=== PATIENT | male | born 2000 | race Caucasian/White ===

== ENCOUNTER 2021-02-01 09:41 | Emergency (ER) | payer BC, SELFPAY ==
--- NOTE | ~2021-02-01 | XR_ITS ---
EXAMINATION: XR elbow LT min 3V EXAM DATE: 02/01/2021 14:18 INDICATION: Left elbow laceration, pain. TECHNIQUE: Left elbow frontal, lateral with flexion, and oblique projections obtained and reviewed. There is no prior study for comparison. FINDINGS: Left elbow anterior humeral line intact. There are no acute fractures or dislocations ellie ntified. There is no subcutaneous gas. Laceration identified over the olecranon process. There are no radiopaque foreign bodies. IMPRESSION: No acute osseous findings. Laceration. Reviewed, dictated and finalized at location A. [facility]
[2021-02-01 10:23] VITALS: BP 147/67; PULSE 70; RESP 16; TEMP 36.2; O2SAT 100
[2021-02-01 13:08] VITALS: BP 134/73; PULSE 68; RESP 12; O2SAT 100
--- NOTE | 2021-02-01 14:39 | ED.GENADULT ---
HPI - General Adult General Chief complaint: Wound/Laceration Stated complaint: Laceration L elbow Time Seen by Provider: 02/01/21 13:27 Source: patient Mode of arrival: ambulatory Limitations: no limitations History of Present Illness HPI narrative: Patient is a 20-year-old male with chief complaint of laceration to the left elbow that he sustained while playing hockey and hitting the elbow on the ice. Patient reports he has full range of motion to the elbow but there is some tenderness and a little swelling. Patient reports that he is up-to-date on tetanus. Patient denies any other injuries or concerns. Related Data Allergies Allergy/AdvReac Type Severity Reaction Status Date / Time No Known Allergies Allergy Verified 02/01/21 15:27 Review of Systems Review of Systems: CONSTITUTIONAL: Denies fever, chills, or sweats. EYES: Denies visual changes, redness, or discharge. ENT: Denies rhinorrhea, congestion, sore throat, or otalgia. CARDIOVASCULAR: Denies chest pain, palpitations, or edema. RESPIRATORY: Denies cough or dyspnea. GASTROINTESTINAL: Denies abdominal pain, nausea, vomiting, or diarrhea. GENITOURINARY: Denies dysuria or hematuria. SKIN: Reports laceration denies rash or itching. MUSCULOSKELETAL: Denies back pain, joint pain, or myalgia. NEUROLOGIC: Denies headache, numbness, dizziness, or weakness. PSYCHIATRIC: Denies anxiety or depression. Exam Narrative: GENERAL: Well-appearing, well-nourished, and in no acute distress. HEAD: Normocephalic, atraumatic. EYES: PERRLA and EOMI. CHEST: Clear to auscultation. No respiratory distress. No wheezes rales or rhonchi HEART: Regular rate and rhythm. No murmur heard. Normal peripheral pulses. EXTREMITIES: Normal range of motion. No edema. SKIN: 2.5 cm laceration to left elbow with some gaping. Appears to have some avulsed tissue to center. Warm, dry, no rash. NEURO: No focal deficits. Alert and oriented x3. PSYCH: Normal mood and affect. Course Vital Signs Vital signs: Vital Signs Temperature 97.2 F L 02/01/21 10:23 Pulse Rate 70 02/01/21 10:23 Respiratory Rate 16 02/01/21 10:23 Blood Pressure 147/67 H 02/01/21 10:23 Pulse Oximetry 100 02/01/21 10:23 Temperature 97.2 F L 02/01/21 10:23 Pulse Rate 68 02/01/21 13:08 Respiratory Rate 12 02/01/21 13:08 Blood Pressure 134/73 02/01/21 13:08 Pulse Oximetry 100 02/01/21 13:08 Procedures Laceration Laceration 1: Side (If applicable): left Size (cm): 2.5 Description: irregular Depth: simple, single layer Local Anesthetic: lidocaine 1% Amount of anesthesia used (mL): 2 Pre-repair: irrigated extensively ====== Skin Level ====== Size (cm): 3-0 Number of sutures: 3 Technique: simple, interrupted ====== Subcutaneous Layer ====== ====== Muscle Layer ====== ====== Tendon Layer ====== Dressing: Wound care and follow-up instructions given. Patient tolerated procedure well. Medical Decision Making MDM Narrative Medical decision making narrative: Patient wound care and follow-up instructions. Patient tolerated procedure without any complications. Patient instructed if any signs of infection present that he needs to have the wound evaluated sooner. Patient instructed to avoid putting stress or tension on the wound site. Patient denies any other needs or concerns and is up-to-date on tetanus. Vital Signs Vital Signs: Vital Signs Temperature 97.2 F L 02/01/21 10:23 Pulse Rate 70 02/01/21 10:23 Respiratory Rate 16 02/01/21 10:23 Blood Pressure 147/67 H 02/01/21 10:23 Pulse Oximetry 100 02/01/21 10:23 Temperature 97.2 F L 02/01/21 10:23 Pulse Rate 68 02/01/21 13:08 Respiratory Rate 12 02/01/21 13:08 Blood Pressure 134/73 02/01/21 13:08 Pulse Oximetry 100 02/01/21 13:08 Imaging Data Radiologist's impression: ITS Impressions Elbow X-Ray 02/01/21 14:22 IMP
[2021-02-01] MEDS: LIDOCAINE HCL 1% LOCAL INJ 20 ML VIAL (15:27)
== END 2021-02-01 15:53 | disposition home or self-care (01) ==
PROVIDERS: Emergency Provider Emergency Medicine
DX: S51.012A Laceration without foreign body of left elbow, initial encounter (principal); W00.0XXA Fall on same level due to ice and snow, initial encounter
CPT/HCPCS: 12001; 73080; 99283